=== PATIENT | female | born 1945 | race Asian ===

== ENCOUNTER → 2016-12-19 | Outpatient (CLI) | payer MEDICARE, BC ==
--- NOTE | 2016-12-21 17:03 | HM ---
Date Performed: 12/19/2016 Time Performed: 12:11:00 HOOKUP DATE: 12/19/16 12:11:00 PM Wed ANALYSIS START TIME: 12/19/2016 12:16:00 PM ANALYSIS END TIME: 12/20/2016 11:56:00 AM PATIENT AGE: 71 PATIENT HEIGHT PATIENT WEIGHT DRUG LIST PATIENT DIAGNOSIS: palpitations TEST NARRATIVE: The patient's average heart rate was 68 BPM. Predominant rhythm was sinus. No episodes of tachycardia were noted. No episodes of bradycardia were noted. No pauses exceed ing 2.0 seconds were noted. 336 ventricular ectopics, which represented < 1% of the total beat co unt, were noted. The highest ventricular ectopic frequency occurred from 06:00 PM to 07:00 PM Wed. During this time 27 VE(s) occurred. Ventricular ectopics were observed as 334 isolated beat(s) and a s 1 couplet(s). No runs were noted. 51 supraventricular ectopics, which represented < 1% of the total beat count, were noted. The highest supraventricular ectopic frequency occurred from 10:00 AM to 11:00 AM Shania. During this time 12 SVE(s) occurred. No episodes of ST depression (defined as - 1.0 mm or more) were noted in channel 1. No episodes of ST depression (defined as -1.0 mm or more) w ere noted in channel 2. No episodes of ST depression (defined as -1.0 mm or more) were noted in [facility] 3. NO DIARY RETURNED NORMAL HOLTER TEST INTERPRETATION: Normal Holter Signed by : Roselia Brady
== END ==
LOC: HCAV 12:37
PROVIDERS: ATTEND Family Medicine
DX: R00.2 Palpitations (principal)
CPT/HCPCS: 93225; 93226